=== PATIENT | female | born 1990 | race Two or more races ===

== ENCOUNTER 2022-07-04 14:03 | Inpatient (IN) | payer OTHER ==
[2022-07-04 14:51] VITALS: BMI 20.3
[2022-07-04] MEDS ORDERED: chlordiazePOXIDE HCL 25 MG CAPSULE PO PRN (16:50)
[2022-07-04] MEDS ORDERED: LOPERAMIDE HCL 2 MG CAPSULE PO PRN (16:50)
[2022-07-04] MEDS ORDERED: DICYCLOMINE HCL 10 MG CAPSULE PO PRN (16:50)
[2022-07-04] MEDS ORDERED: BENZOCAINE/MENTHOL (CHLORASEPTIC ) LOZENGE MM PRN (16:50)
[2022-07-04] MEDS ORDERED: IBUPROFEN 600 MG TABLET (FP) PO PRN (16:50)
[2022-07-04] MEDS ORDERED: ACETAMINOPHEN 325 MG TABLET (FP) PO PRN ×2 (16:50)
[2022-07-04] MEDS ORDERED: hydrOXYzine PAMOATE 25 MG CAPSULE (FP) PO PRN (16:50)
[2022-07-04] MEDS ORDERED: IBUPROFEN 400 MG TABLET (FP) PO PRN (16:50)
[2022-07-04] MEDS ORDERED: BISMUTH SUBSALICYLATE 524 MG/30 ML PO PRN (16:50)
[2022-07-04] MEDS ORDERED: ONDANSETRON *ODT* 4 MG TABLET SL PRN (16:50)
[2022-07-04] MEDS ORDERED: MAGNESIUM CITRATE 300 ML BOTTLE PO PRN (16:50)
[2022-07-04] MEDS ORDERED: MAGNESIUM HYDROX 2400MG/30ML ORAL SUSPENSION 30 ML CUP PO PRN (16:50)
[2022-07-04] MEDS ORDERED: MAG HYDROX/AL HYDROX/SIMETH 30 ML UNIT-DOSE CUP PO PRN (16:50)
[2022-07-04] MEDS ORDERED: hydrOXYzine PAMOATE 25 MG CAPSULE (FP) PO ONE (17:12)
[2022-07-04] MEDS: chlordiazePOXIDE HCL 10 MG CAPSULE PO SCH ×2 (17:45→22:13)
[2022-07-04] MEDS: NICOTINE 10 MG CARTRIDGE (INHALER) IH PRN ×2 (18:01→22:36)
[2022-07-04] MEDS ORDERED: DULoxetine HCL 30 MG CAPSULE.DR PO ONE ×2 (19:30→22:00)
[2022-07-04] MEDS ORDERED: traZODone HCL 50 MG TABLET (FP) PO ONE (22:00)
[2022-07-04] MEDS: METHOCARBAMOL 500 MG TABLET PO PRN (22:13)
[2022-07-04] MEDS: THIAMINE HCL 100 MG TABLET (FP) PO SCH (22:13)
[2022-07-04] MEDS: MELATONIN 5 MG TABLETS PO SCH (22:13)
[2022-07-05] MEDS: chlordiazePOXIDE HCL 10 MG CAPSULE PO SCH ×4 (05:36→23:00)
[2022-07-05] MEDS: PRENATAL VITAMINS W/ FOLIC ACID TABLET (FP) PO SCH (10:26)
[2022-07-05 11:10] LABS: HEMATOCRIT 40.8 % (32.4-45.2); HEMOGLOBIN 13.9 GM/dL (10.7-15.3); MCH 33.7 pg (25.7-33.7); MEAN PLT VOLUME 7.2 fl (7.5-11.1); PLATELET COUNT 283 10^3/uL (134-434); RBC 4.12 M/mm3 (3.60-5.2); WHITE BLOOD COUNT 4.7 K/mm3 (4.0-10.0)
[2022-07-05 11:16] LABS: CALCIUM 9.2 mg/dL (8.5-10.1)
[2022-07-05 11:17] LABS: ALBUMIN 3.2 g/dl (3.4-5.0); BLOOD UREA NITROGEN 16.8 mg/dL (7-18)
[2022-07-05 11:20] LABS: CREATININE 0.9 mg/dL (0.55-1.3)
[2022-07-05 11:22] LABS: BILIRUBIN,TOTAL 0.4 mg/dL (0.2-1); TOT PROT 6.3 g/dl (6.4-8.2)
[2022-07-05] MEDS ORDERED: DULoxetine HCL 30 MG CAPSULE.DR PO SCH ×2 (16:00→22:00)
[2022-07-05] MEDS ORDERED: traZODone HCL 50 MG TABLET (FP) PO SCH (22:00)
[2022-07-05] MEDS ORDERED: traZODone HCL 50 MG TABLET (FP) PO ONE (22:30)
[2022-07-05] MEDS: MELATONIN 5 MG TABLETS PO SCH (22:58)
[2022-07-05] MEDS: THIAMINE HCL 100 MG TABLET (FP) PO SCH (22:58)
[2022-07-05] MEDS: METHOCARBAMOL 500 MG TABLET PO PRN (23:00)
[2022-07-05] MEDS: NICOTINE 10 MG CARTRIDGE (INHALER) IH PRN (23:10)
[2022-07-06] MEDS: chlordiazePOXIDE HCL 25 MG CAPSULE PO SCH ×4 (06:06→22:17)
[2022-07-06] MEDS ORDERED: DULoxetine HCL 30 MG CAPSULE.DR PO SCH ×4 (08:56→22:00)
[2022-07-06] MEDS: PRENATAL VITAMINS W/ FOLIC ACID TABLET (FP) PO SCH (11:07)
[2022-07-06] MEDS: DULoxetine HCL 30 MG CAPSULE.DR PO SCH (18:24)
[2022-07-06] MEDS: NICOTINE 10 MG CARTRIDGE (INHALER) IH PRN (20:33)
[2022-07-06] MEDS ORDERED: traZODone HCL 50 MG TABLET (FP) PO SCH (22:00)
[2022-07-06] MEDS: THIAMINE HCL 100 MG TABLET (FP) PO SCH (22:17)
[2022-07-06] MEDS: MELATONIN 5 MG TABLETS PO SCH (22:20)
[2022-07-06] MEDS: METHOCARBAMOL 500 MG TABLET PO PRN (22:45)
[2022-07-07] MEDS ORDERED: chlordiazePOXIDE HCL 10 MG CAPSULE PO PRN
[2022-07-07] MEDS: chlordiazePOXIDE HCL 10 MG CAPSULE PO SCH ×2 (05:48→11:15)
[2022-07-07] MEDS: METHOCARBAMOL 500 MG TABLET PO PRN (05:48)
[2022-07-07] MEDS: PRENATAL VITAMINS W/ FOLIC ACID TABLET (FP) PO SCH (11:15)
[2022-07-07] MEDS: DULoxetine HCL 30 MG CAPSULE.DR PO SCH (11:15)
[2022-07-07] MEDS: NICOTINE 10 MG CARTRIDGE (INHALER) IH PRN (11:16)
[2022-07-07 13:36] VITALS: BP 120/73; PULSE 71; RESP 16; TEMP 98
[2022-07-08] MEDS ORDERED: chlordiazePOXIDE HCL 10 MG CAPSULE PO SCH (05:00)
[2022-07-09] MEDS ORDERED: chlordiazePOXIDE HCL 10 MG CAPSULE PO ONE (05:00)
== END 2022-07-07 13:51 | disposition left against medical advice (07) | DRG 774 ==
LOC: YASAS 14:03 → Y3N 16:52
PROVIDERS: ADMIT Allergy & Immunology; ATTEND Surgery
PROC: HZ2ZZZZ Detoxification Services for Substance Abuse Treatment (ICD-10-PCS; principal; 2022-07-04)
DX: F10.230 Alcohol dependence with withdrawal, uncomplicated (principal); F14.10 Cocaine abuse, uncomplicated; F17.210 Nicotine dependence, cigarettes, uncomplicated; F19.24 Other psychoactive substance dependence with psychoactive substance-induced mood disorder; F41.9 Anxiety disorder, unspecified; F32.A Depression, unspecified; Z62.810 Personal history of physical and sexual abuse in childhood; Z91.410 Personal history of adult physical and sexual abuse
CPT/HCPCS: 36415; 80053; 81025; 85027; 86780; C9803-CS; U0003; U0005